=== PATIENT | male | born 1940 | race Caucasian/White ===

== ENCOUNTER 2021-09-26 12:02 | Inpatient (IN) | payer OTHER ==
[~2021-09-26] VITALS: Ht 180.3 cm; Wt 52.6 kg
[2021-09-26 12:56] LABS: HEMOGLOBIN 15.8 gm/dl (14.0-17.5); RED BLOOD COUNT 4.82 M/UL (4.20-5.50); WHITE BLOOD COUNT 29.4 K/UL (4.5-11.0)
[2021-09-27 03:44] LABS: HEMOGLOBIN 13.3 gm/dl (14.0-17.5); RED BLOOD COUNT 4.19 M/UL (4.20-5.50); WHITE BLOOD COUNT 18.8 K/UL (4.5-11.0)
[2021-09-28 05:34] LABS: HEMOGLOBIN 11.9 gm/dl (14.0-17.5); WHITE BLOOD COUNT 14.5 K/UL (4.5-11.0)
[2021-09-28 05:40] LABS: RED BLOOD COUNT 3.72 M/UL (4.20-5.50)
[2021-09-30 02:03] LABS: HEMOGLOBIN 12.5 gm/dl (14.0-17.5); RED BLOOD COUNT 3.97 M/UL (4.20-5.50); WHITE BLOOD COUNT 13.1 K/UL (4.5-11.0)
[2021-10-01 01:59] LABS: HEMOGLOBIN 11.9 gm/dl (14.0-17.5); RED BLOOD COUNT 3.8 M/UL (4.20-5.50); WHITE BLOOD COUNT 10.5 K/UL (4.5-11.0)
[2021-10-02 03:15] LABS: HEMOGLOBIN 12.8 gm/dl (14.0-17.5); RED BLOOD COUNT 4.04 M/UL (4.20-5.50); WHITE BLOOD COUNT 10.8 K/UL (4.5-11.0)
[2021-10-03 04:34] LABS: HEMOGLOBIN 12.6 gm/dl (14.0-17.5); RED BLOOD COUNT 4.03 M/UL (4.20-5.50); WHITE BLOOD COUNT 10.3 K/UL (4.5-11.0)
[2021-10-04 03:28] LABS: HEMOGLOBIN 12.5 gm/dl (14.0-17.5); RED BLOOD COUNT 4.01 M/UL (4.20-5.50); WHITE BLOOD COUNT 8.8 K/UL (4.5-11.0)
[2021-10-05 05:15] LABS: HEMOGLOBIN 12.6 gm/dl (14.0-17.5); RED BLOOD COUNT 4.02 M/UL (4.20-5.50); WHITE BLOOD COUNT 8.3 K/UL (4.5-11.0)
--- NOTE | 2021-10-05 14:53 | NUR ---
10/05/[address] REIS DON'T TITRATE DOPAMINE UNLESS THE PATIENTS SBP IS BELOW 80
[2021-10-06 03:05] LABS: HEMOGLOBIN 11.5 gm/dl (14.0-17.5); RED BLOOD COUNT 3.72 M/UL (4.20-5.50); WHITE BLOOD COUNT 8.8 K/UL (4.5-11.0)
[2021-10-07 04:03] LABS: HEMOGLOBIN 11.3 gm/dl (14.0-17.5); RED BLOOD COUNT 3.64 M/UL (4.20-5.50); WHITE BLOOD COUNT 8.4 K/UL (4.5-11.0)
[2021-10-10] MEDS ORDERED: RANEXA500 MG PO (09:47)
[2021-10-10] MEDS ORDERED: CLOPIDOGREL75 MG PO (09:47)
[2021-10-10] MEDS ORDERED: ATORVASTATIN CA20 MG PO (09:47)
[2021-10-10] MEDS ORDERED: ASPIRIN EC81 MG PO (09:47)
[2021-10-10] MEDS ORDERED: MIDODRINE HCL10 MG PO (09:47)
[2021-10-10] MEDS ORDERED: FLOMAX 0.4 MG0.4 MG PO (09:47)
== END 2021-10-11 11:18 | disposition home or self-care (01) | DRG 280 ==
LOC: ER1 12:02 → PROG CARE 15:05 → CDU 15:05 → MED SURG 4 19:33 → PROG CARE 09-28 08:39
PROVIDERS: Emergency Medicine; Internal Medicine; Physician Assistant; ADMIT Internal Medicine
PROC: 3E03329 Introduction of Other Anti-infective into Peripheral Vein, Percutaneous Approach (ICD-10-PCS; 2021-09-26)
PROC: B24BZZZ Ultrasonography of Heart with Aorta (ICD-10-PCS; principal; 2021-09-27)
DX: I21.4 Non-ST elevation (NSTEMI) myocardial infarction (principal); A41.9 Sepsis, unspecified organism; J18.9 Pneumonia, unspecified organism; Z20.822 Contact with and (suspected) exposure to COVID-19; Z66 Do not resuscitate; I13.0 Hypertensive heart and chronic kidney disease with heart failure and stage 1 through stage 4 chronic kidney disease, or unspecified chronic kidney disease; I50.22 Chronic systolic (congestive) heart failure; J44.0 Chronic obstructive pulmonary disease with (acute) lower respiratory infection; N13.30 Unspecified hydronephrosis; Z68.1 Body mass index [BMI] 19.9 or less, adult; N17.9 Acute kidney failure, unspecified; N40.1 Benign prostatic hyperplasia with lower urinary tract symptoms; R74.01 Elevation of levels of liver transaminase levels; E86.0 Dehydration; E88.09 Other disorders of plasma-protein metabolism, not elsewhere classified; I48.91 Unspecified atrial fibrillation; F17.210 Nicotine dependence, cigarettes, uncomplicated; R00.1 Bradycardia, unspecified; F03.90 Unspecified dementia, unspecified severity, without behavioral disturbance, psychotic disturbance, mood disturbance, and anxiety; H91.93 Unspecified hearing loss, bilateral; N18.30 Chronic kidney disease, stage 3 unspecified; I25.5 Ischemic cardiomyopathy; I07.1 Rheumatic tricuspid insufficiency; E83.42 Hypomagnesemia; K80.80 Other cholelithiasis without obstruction; E87.6 Hypokalemia; I95.9 Hypotension, unspecified; Z82.0 Family history of epilepsy and other diseases of the nervous system; Z79.01 Long term (current) use of anticoagulants; Z98.42 Cataract extraction status, left eye; Z98.41 Cataract extraction status, right eye; Z90.49 Acquired absence of other specified parts of digestive tract
CPT/HCPCS: ECHO; 36415; 70450; 71045; 80048; 80053; 81001; 82550; 82553; 83036; 83605; 83735; 83880; 84100; 84484; 85025; 85027; 85610; 85730; 86140; 87040; 87086; 92610; 93005; 93306; 94640; 94760; 96374; 96375; 97110-GP-CQ; 97116; 97116-GP-CQ; 97161; 97162; 97530-GP-CQ; 99285; J0696; J1265; J1644; J2405; J2543; J3475; Q0177

== ENCOUNTER 2021-10-24 15:34 | Emergency (ER) | payer OTHER ==
[~2021-10-24 15:34] MED LIST: ASPIRIN EC81 MG PO; ATORVASTATIN CA20 MG PO; CLOPIDOGREL75 MG PO; FLOMAX 0.4 MG0.4 MG PO; MIDODRINE HCL10 MG PO; RANEXA500 MG PO
[2021-10-24 16:30] LABS: HEMOGLOBIN 12.4 gm/dl (14.0-17.5); RED BLOOD COUNT 3.97 M/UL (4.20-5.50); WHITE BLOOD COUNT 5.5 K/UL (4.5-11.0)
[2021-10-24] MEDS ORDERED: MEGACE TAB 20 M20 MG PO (21:49)
== END 2021-10-24 22:13 | disposition home or self-care (01) ==
LOC: ER1 15:34
PROVIDERS: Physician Assistant
DX: R63.0 Anorexia (principal); R07.9 Chest pain, unspecified; R10.9 Unspecified abdominal pain; R11.2 Nausea with vomiting, unspecified; I50.20 Unspecified systolic (congestive) heart failure; N18.30 Chronic kidney disease, stage 3 unspecified; I25.2 Old myocardial infarction; J44.9 Chronic obstructive pulmonary disease, unspecified; F17.200 Nicotine dependence, unspecified, uncomplicated
CPT/HCPCS: 71045; 80053; 81001; 82550; 82553; 83690; 84484; 85025; 93005; 99285

== ENCOUNTER 2021-12-09 12:07 | Inpatient (IN) | payer OTHER ==
[~2021-12-09] VITALS: Ht 182.9 cm; Wt 54.1 kg
[~2021-12-09 12:07] MED LIST changes: +MEGACE TAB 20 M20 MG PO
[2021-12-09 13:43] LABS: HEMOGLOBIN 13.3 gm/dl (14.0-17.5); RED BLOOD COUNT 4.18 M/UL (4.20-5.50); WHITE BLOOD COUNT 6.9 K/UL (4.5-11.0)
[2021-12-09] MEDS ORDERED: MEGACE TAB 40 M40 MG PO (17:38)
[2021-12-09] MEDS ORDERED: ATORVASTATIN CA40 MG PO (17:40)
[2021-12-09] MEDS ORDERED: ASPIRIN EC81 MG PO (17:40)
[2021-12-09] MEDS ORDERED: MIDODRINE HCL10 MG PO (17:41)
[2021-12-09] MEDS ORDERED: FLOMAX 0.4 MG0.4 MG PO (17:41)
[2021-12-09] MEDS ORDERED: CLOPIDOGREL75 MG PO (17:41)
[2021-12-10 01:40] LABS: HEMOGLOBIN 12.4 gm/dl (14.0-17.5); RED BLOOD COUNT 3.89 M/UL (4.20-5.50); WHITE BLOOD COUNT 8.2 K/UL (4.5-11.0)
[2021-12-11 07:19] LABS: HEMOGLOBIN 12.8 gm/dl (14.0-17.5); RED BLOOD COUNT 4.04 M/UL (4.20-5.50); WHITE BLOOD COUNT 6.3 K/UL (4.5-11.0)
[2021-12-12 06:58] LABS: HEMOGLOBIN 11.6 gm/dl (14.0-17.5); RED BLOOD COUNT 3.64 M/UL (4.20-5.50); WHITE BLOOD COUNT 6.4 K/UL (4.5-11.0)
--- NOTE | 2021-12-12 18:05 | NUR ---
PT CONTINUES TO HAVE ONE TO ONE SITTER AT THE BEDSIDE. HE HAS BEEN COOPERATIVE TODAY.
[2021-12-13 06:54] LABS: HEMOGLOBIN 11.8 gm/dl (14.0-17.5); RED BLOOD COUNT 3.73 M/UL (4.20-5.50)
[2021-12-14 07:00] LABS: HEMOGLOBIN 11.8 gm/dl (14.0-17.5); RED BLOOD COUNT 3.72 M/UL (4.20-5.50); WHITE BLOOD COUNT 7.3 K/UL (4.5-11.0)
--- NOTE | 2021-12-14 09:39 | NUR ---
Pt is KIANA, communication used form of writing. Pt has sitter due to wandering and KIANA.
[2021-12-15 06:26] LABS: HEMOGLOBIN 12.5 gm/dl (14.0-17.5); RED BLOOD COUNT 3.92 M/UL (4.20-5.50); WHITE BLOOD COUNT 8.9 K/UL (4.5-11.0)
[2021-12-16 07:01] LABS: HEMOGLOBIN 12.1 gm/dl (14.0-17.5); RED BLOOD COUNT 3.85 M/UL (4.20-5.50); WHITE BLOOD COUNT 7.5 K/UL (4.5-11.0)
[2021-12-17 07:31] LABS: HEMOGLOBIN 12.3 gm/dl (14.0-17.5); RED BLOOD COUNT 3.94 M/UL (4.20-5.50); WHITE BLOOD COUNT 7.4 K/UL (4.5-11.0)
--- NOTE | 2021-12-18 09:17 | NUR ---
0917- NOTIFIED DR CRENSHAW OF PTS BLODD PRESSURE 68/44 WITH HEART RATE 62. PTS VITALS WERE TAKEN MANUALLY. NO NEW ORDERS AT THIS TIME. STATES HE WILL COME TO FLOOR TO EXAMINE PT.
[2021-12-18 11:39] LABS: HEMOGLOBIN 11.5 gm/dl (14.0-17.5)
[2021-12-18 11:47] LABS: RED BLOOD COUNT 3.52 M/UL (4.20-5.50)
--- NOTE | 2021-12-18 12:53 | NUR ---
1215- notified dr coats of critical lactic 24.0. no new orders at this time.
--- NOTE | 2021-12-18 13:55 | NUR ---
1358- SPOKE WITH DR CRENSHAW ABOUT PTS BLOOD PRESSURE 68/[address] CRENSHAW ORDERED PT TO BE SENT TO PCU AND START LEVOPHED. I NOTIFIED DR CRENSHAW THAT I HAD NEVER PUT IN AN ORDER FOR LEVOPHED. ASKED FOR DIRECTIONS, HE STATED TO CALL PHARMACY, HE WAS IN A MEETING.
--- NOTE | 2021-12-18 14:24 | NUR ---
0930- NOTIFIED DR CRENSHAW OF PTS BLOOD PRESSURE STILL BEING LOW. STATED PT WAS ASLEEP AND HIS BLOOD PRESSURE IS EXPECTED TO BE LOW. NO NEW ORDERS WERE RECIVED AT THIS TIME
[2021-12-19 02:22] LABS: HEMOGLOBIN 11.8 gm/dl (14.0-17.5); RED BLOOD COUNT 3.64 M/UL (4.20-5.50)
[2021-12-19 02:32] LABS: BUN/CREATININE RATIO 17 (0-10)
[2021-12-19 03:42] LABS: WHITE BLOOD COUNT 39.7 K/UL (4.5-11.0)
[2021-12-19 07:30] LABS: CANDIDA ALBICANS Not Detected (Negative); CANDIDA KRUSEI Not Detected (Negative); CANDIDA TROPICALIS Not Detected (Negative); ESCHERICHIA COLI Not Detected (Negative); HAEMOPHILUS INFLUENZAE Not Detected (Negative); KLEBSIELLA OXYTOCA Not Detected (Negative); KLEBSIELLA PNEUMONIAE Not Detected (Negative); KPC-CARBAPENEM-RESISTANCE GENE Not Detected (Negative); PROTEUS Not Detected (Negative); PSEUDOMONAS AERUGINOSA Not Detected (Negative); SERRATIA MARCESANS Not Detected (Negative); STAPHYLOCOCCUS Not Detected (Negative); STAPHYLOCOCCUS AUREUS Not Detected (Negative); STREP AGALACTIAE (GROUP B) Not Detected (Negative); STREP PYOGENES (GROUP A) Not Detected (Negative); STREPTOCOCCUS Not Detected (Negative); vanA/B (VANCOMYCIN RESIST GENE Not Detected (Negative)
[2021-12-20 01:54] LABS: HEMOGLOBIN 10.7 gm/dl (14.0-17.5); RED BLOOD COUNT 3.37 M/UL (4.20-5.50)
[2021-12-20 02:08] LABS: WHITE BLOOD COUNT 27.4 K/UL (4.5-11.0)
[2021-12-21 02:08] LABS: HEMOGLOBIN 10.7 gm/dl (14.0-17.5); RED BLOOD COUNT 3.31 M/UL (4.20-5.50); WHITE BLOOD COUNT 15.3 K/UL (4.5-11.0)
[2021-12-22 02:09] LABS: HEMOGLOBIN 11.2 gm/dl (14.0-17.5); RED BLOOD COUNT 3.47 M/UL (4.20-5.50)
[2021-12-22 02:13] LABS: WHITE BLOOD COUNT 11.2 K/UL (4.5-11.0)
[2021-12-23 02:18] LABS: HEMOGLOBIN 10.6 gm/dl (14.0-17.5); RED BLOOD COUNT 3.35 M/UL (4.20-5.50)
[2021-12-24 08:26] LABS: HEMOGLOBIN 11.6 gm/dl (14.0-17.5); RED BLOOD COUNT 3.61 M/UL (4.20-5.50); WHITE BLOOD COUNT 7.6 K/UL (4.5-11.0)
[2021-12-24] MEDS ORDERED: PHOS-NAK PACKET1 EA PO (11:13)
[2021-12-24] MEDS ORDERED: MEROPENEM1 GM IV (11:13)
[2021-12-24] MEDS ORDERED: MEGACE 400400 MG/10 PO (11:13)
[2021-12-24] MEDS ORDERED: COLACE100 MG PO (11:13)
[2021-12-24] MEDS ORDERED: LOPRESSOR 25 MG25 MG PO (11:13)
[2021-12-24] MEDS ORDERED: POLYETHYLENE GL17 GM PO (11:13)
[2021-12-24] MEDS ORDERED: TOPROL XL25 MG PO (11:43)
--- NOTE | 2021-12-24 14:19 | NUR ---
REPORT CALLED TO MALENA AT [facility] AT 1405. AMBULANCE IS SCHEDULED AND AWAITING ARRIVAL.
[2021-12-26 16:12] LABS: HEPARIN INDUCED PLATELET AB 0.053 OD (0.000-0.400)
== END 2021-12-24 15:33 | DRG 682 ==
LOC: ER1 12:07 → CDU 16:35 → M/S 16:35 → PROG CARE 12-12 09:00 → M/S 12-12 09:00 → PROG CARE 12-18 14:26
PROVIDERS: Family Medicine; Internal Medicine; ADMIT Internal Medicine
PROC: B24BZZZ Ultrasonography of Heart with Aorta (ICD-10-PCS; 2021-12-10)
PROC: 3E043XZ Introduction of Vasopressor into Central Vein, Percutaneous Approach (ICD-10-PCS; principal; 2021-12-18)
PROC: 3E03329 Introduction of Other Anti-infective into Peripheral Vein, Percutaneous Approach (ICD-10-PCS; 2021-12-18)
DX: N17.9 Acute kidney failure, unspecified (principal); A41.59 Other Gram-negative sepsis; Z20.822 Contact with and (suspected) exposure to COVID-19; Z66 Do not resuscitate; R65.21 Severe sepsis with septic shock; Z68.1 Body mass index [BMI] 19.9 or less, adult; I13.0 Hypertensive heart and chronic kidney disease with heart failure and stage 1 through stage 4 chronic kidney disease, or unspecified chronic kidney disease; I47.1 Supraventricular tachycardia; I50.22 Chronic systolic (congestive) heart failure; I42.9 Cardiomyopathy, unspecified; E44.1 Mild protein-calorie malnutrition; G45.9 Transient cerebral ischemic attack, unspecified; N18.32 Chronic kidney disease, stage 3b; H91.93 Unspecified hearing loss, bilateral; J44.9 Chronic obstructive pulmonary disease, unspecified; R53.81 Other malaise; R29.6 Repeated falls; F03.90 Unspecified dementia, unspecified severity, without behavioral disturbance, psychotic disturbance, mood disturbance, and anxiety; D69.6 Thrombocytopenia, unspecified; N40.0 Benign prostatic hyperplasia without lower urinary tract symptoms; E78.5 Hyperlipidemia, unspecified; I95.89 Other hypotension; E87.6 Hypokalemia; Z79.01 Long term (current) use of anticoagulants; Z79.82 Long term (current) use of aspirin; Z90.49 Acquired absence of other specified parts of digestive tract; Z98.42 Cataract extraction status, left eye; Z98.41 Cataract extraction status, right eye; Z87.891 Personal history of nicotine dependence; Z82.0 Family history of epilepsy and other diseases of the nervous system
CPT/HCPCS: ECHO; 36415; 70450; 70551; 71045; 71250; 80048; 80053; 80061; 80202; 81001; 82436; 82533; 82550; 82553; 82607; 82962; 83036; 83540; 83550; 83605; 83690; 83735; 83880; 84100; 84133; 84300; 84439; 84443; 84484; 85025; 85027; 85049; 85610; 86140; 87040; 87077; 87086; 87150; 87186; 87278; 89050; 92610; 93005; 93270; 93306; 93880; 96372; 97161; 97166; 99285; G0378; J0692; J1650; J2185; J2405; J3370; J3475; J7070; U0002

== ENCOUNTER 2022-01-28 14:54 | Emergency (ER) | payer OTHER ==
[~2022-01-28 14:54] MED LIST changes: +ATORVASTATIN CA40 MG PO; +COLACE100 MG PO; +LOPRESSOR 25 MG25 MG PO; +MEGACE 400400 MG/10 PO; +MEGACE TAB 40 M40 MG PO; +MEROPENEM1 GM IV; +PHOS-NAK PACKET1 EA PO; +POLYETHYLENE GL17 GM PO; +TOPROL XL25 MG PO
[2022-01-28 15:58] LABS: RED BLOOD COUNT 3.41 M/UL (4.20-5.50); WHITE BLOOD COUNT 8.5 K/UL (4.5-11.0)
== END 2022-01-28 20:52 ==
LOC: ER1 14:54
PROVIDERS: Student in an Organized Health Care Education/Training Program
DX: I95.9 Hypotension, unspecified (principal); E86.0 Dehydration; J44.9 Chronic obstructive pulmonary disease, unspecified; Z87.891 Personal history of nicotine dependence
CPT/HCPCS: 80053; 81001; 82550; 82553; 83605; 84484; 85025; 93005; 99285

== ENCOUNTER 2022-02-01 12:14 | Emergency (ER) | payer OTHER ==
[2022-02-01 14:00] LABS: HEMOGLOBIN 11.1 gm/dl (14.0-17.5); RED BLOOD COUNT 3.41 M/UL (4.20-5.50)
[2022-02-01] MEDS ORDERED: AUGMENTIN 500-1 EACH PO (14:34)
== END 2022-02-01 19:31 | disposition home or self-care (01) ==
LOC: ER1 12:14
PROVIDERS: Physician Assistant
DX: J32.2 Chronic ethmoidal sinusitis (principal); N18.9 Chronic kidney disease, unspecified; I48.91 Unspecified atrial fibrillation; R22.0 Localized swelling, mass and lump, head; J44.9 Chronic obstructive pulmonary disease, unspecified; I50.9 Heart failure, unspecified
CPT/HCPCS: 70450; 80048; 85025; 93005; 99284